=== PATIENT | female | born 1955 | race Caucasian/White ===

== ENCOUNTER → 2023-10-15 13:03 | Outpatient (REF) | payer MEDICARE, OTHER, SELFPAY ==
[2023-10-15 14:47] LABS: % Basophils 0.6 % (0-2); % Eosinophils 2.3 % (0-6); % Immature Granulocytes 0.2 % (0-0.5); % Lymphocytes 28.7 % (20.5-51.1); % Monocytes 11.9 % (1.7-9.3); % Neutrophils 56.3 % (42.2-75.2); Absolute Basophils 0.1 10^3/uL (0-0.2); Absolute Eosinophils 0.2 10^3/uL (0-0.7); Absolute Lymphocytes 2.5 10^3/uL (1.2-3.4); Absolute Neutrophils 4.8 10^3/uL (1.4-6.5); Hematocrit 41.5 % (37.0-47.0); Hemoglobin 14.3 g/dL (12.0-16.0); Mean Corp Hgb Conc. 34.5 g/dL (33.0-37.0); Mean Corpuscular Hgb 33.4 pg (27.0-31.0); Mean Platelet Volume 10.5 fL (7.4-10.4); Nucleated Red Blood Cells % 0 %; Platelet Count 208 10^3/uL (130-400); Red Blood Cell Count 4.28 10^6/uL (4.20-5.40); White Blood Cell Count 8.6 10^3/uL (4.8-10.8)
[2023-10-15 14:57] LABS: ALT (SGPT) 21 U/L (0-35); AST (SGOT) 31 U/L (14-36); Albumin 4.7 g/dl (3.5-5.0); Alkaline Phosphatase 79 U/L (38-126); Blood Urea Nitrogen 18 mg/dl (7-17); Carbon Dioxide 31 mmol/L (22-30); Chloride 97 mmol/L (98-107); Glucose 56 mg/dl (70-99); Sodium 136 mmol/L (135-145); Total Bilirubin 0.8 mg/dl (0.2-1.3); Total Protein 7.9 g/dl (6.3-8.2); eGFR > 60.00
[2023-10-15 15:12] LABS: Erythrocyte Sed Rate 14 mm/hour (0-20)
== END ==
LOC: HWLAB 13:03
PROVIDERS: ATTENDING PHYSICIAN Internal Medicine Rheumatology; FAMILY PHYSICIAN Internal Medicine
DX: M54.2 Cervicalgia (principal); L40.50 Arthropathic psoriasis, unspecified; L40.9 Psoriasis, unspecified; M81.0 Age-related osteoporosis without current pathological fracture; Z11.1 Encounter for screening for respiratory tuberculosis; Z51.81 Encounter for therapeutic drug level monitoring
CPT/HCPCS: 36415; 72040; 72072; 72110; 80053; 85025; 85652; 86140

== ENCOUNTER → 2023-10-25 09:45 | Outpatient (REF) | payer MEDICARE, OTHER, SELFPAY ==
[2023-10-27 17:48] LABS: Quantiferon Mitogen minus NIL 8.58 IU/mL; Quantiferon NIL 0.05 IU/mL; Quantiferon TB Gold Plus Negative (Negative)
== END ==
LOC: HWRAD 09:45
PROVIDERS: ATTENDING PHYSICIAN Internal Medicine Rheumatology; FAMILY PHYSICIAN Internal Medicine
DX: M81.0 Age-related osteoporosis without current pathological fracture (principal); L40.50 Arthropathic psoriasis, unspecified; L40.9 Psoriasis, unspecified; Z11.1 Encounter for screening for respiratory tuberculosis; Z51.81 Encounter for therapeutic drug level monitoring
CPT/HCPCS: 36415; 77080; 86480

== ENCOUNTER 2024-03-08 16:33 | Emergency (ER) | payer MEDICARE, OTHER, SELFPAY ==
[2024-03-08 16:39] VITALS: BP 120/77
--- NOTE | 2024-03-08 19:15 | ED.GENMED ---
History of Present Illness
General
Chief Complaint: Head Injury
Source: patient
Exam Limitations: none
Time Seen by Provider: 03/08/24 18:12
History of Present Illness
History of Present Illness:
This is a 68 year old female that comes in with c/o hitting her head. States that she was in the bathroom and she took a shower. states that she had left the bathroom door open and did not realize that the wind had blown the door closed some.
States that she was bending over brushing her hair and when she came back up she hit the back of her head on the doorknob. States that she laid herself on the floor and that there was no LOC. States that she has slight headache and dizziness. States
that she chronically has abd pain. Denies any fever, chills, chest pain, SOB, nausea, vomiting, diarrhea, urinary burning.
Past History
Past History
ED Past Medical History: Arrthythmia (tachycardia), Asthma, Cancer (Right breast cancer 1999), GERD, Psychiatric (anxiety) and Other (Interstitial cystitis, irritable bowel syndrome, chronic constipation, osteoporosis, brain injury, Adrenal
insufficiency, tinnitus, Anemia, Psoriatic arthritis, )
ED Past Surgical History: Cardiac (Ablation, ), Gynecological (Hysterectomy, vaginal/pelvic repair, ), Orthopedic, Urological ( bladder repair, bladder InterStim insertion) and Other (Right breast lumpectomy, Right jaw surgery, )
Social History
Tobacco: Non-smoker
Alcohol: None
Drug: None
Personal:
Living: with family
Employment: Employed (Elementary schoolteacher)
Family History
Family History: Other (Noncontributory)
Review of Systems
Review of Systems
All Other Systems: ROS reviewed and negative except as documented in HPI and ROS
Constitutional: Reports no symptoms; Denies fever or chills
EENT: Reports no symptoms
Respiratory: Reports no symptoms; Denies cough or trouble breathing
Cardiac: Reports no symptoms; Denies chest pain
ABD/GI: Reports abdominal pain (Chronic); Denies nausea, vomiting or diarrhea
: Reports no symptoms; Denies dysuria, frequency or urgency
Musculoskeletal: Reports neck pain
Skin: Reports other (Laceration head)
Neurological: Reports dizzy and headache (Slight)
Psychiatric: Reports no symptoms
Phy Exam
General Physical Exam
General Presentation: well appearing and no apparent distress
General age: appears stated age
General Skin: warm and dry
General Habitus: normal
General Mental: alert
General Hydration: appears well hydrated
ENT Exam
ENT Exam: TM's normal, pharynx normal and neck supple
Eye Exam
Eye Exam: EOMI
Cardiovascular Exam
Cardiovascular Exam: regular rate/rhythm, no edema and normal peripheral pulses
Pulmonary Exam
Pulmonary Exam: lungs clear, no respiratory distress, no rales, chest non tender, no crackles, no rhonchi, no wheezing and no cough
Musculoskeletal Exam
Musculoskeletal Exam: neck pain (with palpation)
Skin Exam
Skin Exam: normal color, warm/dry, no rash, no petechia and laceration (Posterior scalp)
Psychiatric Exam
Psychiatric Exam: normal mood/affect
Course
Orders/Labs/Results
Orders:
Orders
03/08/24 19:00
CT Cervical Spine W/o Iv Contr Urgent
Comment:
Reason For Exam: Neck pain
CT Head W/o Iv Contrast Urgent
Comment:
Reason For Exam: hit head on door knob
Vital Signs
Initial and Last Documented VS:
Initial Vital Signs
Temp Pulse Resp BP Pulse Ox
99.1 F 104 18 120/77 93
03/08/24 16:39 03/08/24 16:39 03/08/24 16:39 03/08/24 16:39 03/08/24 16:39
Last Documented Vital Signs
Temp Pulse Resp BP Pulse Ox
99.1 F 104 18 120/77 93
03/08/24 16:39 03/08/24 16:39 03/08/24 16:39 03/08/24 16:39 03/08/24 16:39
Procedures
Laceration Closure
Posterior Scalp:
Status of Wound: clean
Size of Wound in cm: 2.5
Description of Wound Edges: sharp
Preparation: cleaned with saline (and peroxide)
Wound exploration: explored to base- no FB
Type of Closure: other (Three konrad)
MDM/Problems Addressed
Differential Diagnosis Includes:
laceration, Head injury
MDM/Problems Addressed:
This is a 68 year old female that comes in with c/o hitting her head on the doorknob when she was coming up from brushing her hair.
Will get CT head and neck as patient c/o tenderness with cervical palpation.
Back into see patient. Explained that the CT of her head is normal. Her CT of the Cervical spine is negative for any fracture but there is increased degenerative changes. Patient will give given a Tetanus and discharge home. Patient to follow up
with the family doctor in 10 days for staple removal. Return with any concerns.
Chronic conditions affecting care:
NA
Acute Exacerbation and/or Progression of Chronic Illness:
NA
*Radiology
Radiology exam reviewed: radiology read reviewed (CT head-NO acute intracranial abnormality. CT cervical spine-Degenerative changes with progression in comparison to relative remove prior study. No findings to suggest recent cervical spine
fracture. )
*Pulse Oximetry
Patient hypoxic: no
*EKG
Interpreted by ED Provider?: NA
Rate: EKG- N/A
*Spent Grain Dryer Interpretation
Rate: Spent Grain Dryer- N/A
*Critical Care Note
Total Time (30-74mins, 75-104mins- exclusive of procedures): Not Applicable
ED Attending Note
-
Portions of this chart may have been created with voice recognition software.� Occasional wrong word or��sound alike� substitutions may have occurred due to the inherent limitations of voice recognition software.
Discharge Plan
Departure
Patient Disposition: Home (Routine Discharge)
Date of Disposition: 03/08/24
Time of Disposition: 20:27
Patient with high blood pressure during this ER visit?: No
Condition: Good
Covid-19: Not Applicable
Discharge Problem:
Laceration of head
Instructions: Laceration Repair With [place] (DC)
Prescriptions:
No Action
rabeprazole [AcipHex] 20 MG tablet,delayed release (DR/EC)
20 mg PO DAILY
montelukast 10 MG tablet
10 mg PO HS
fluticasone propionate 1 SPRAY spray,suspension
2 spray intranasal DAILY
cyclosporine [Restasis] 10 DROPS dropperette
1 drp BOTH EYES HS
hydrocortisone butyr-emollient 15 GM cream
1 applic topical DAILY
emollient combination no.25 [Eletone] 100 GM cream
1 applic TP BIDPRN PRN (Reason: legs/arm/back)
cholecalciferol (vitamin D3) 2,000 UNITS tablet
4,000 unit PO DAILY
mometasone-formoterol [Dulera] 1 PUFF HFA aerosol inhaler
1 puff IH R DAILY
crisaborole [Eucrisa] 60 GM ointment
1 applic topical DAILY
carisoprodol 350 MG tablet
350 mg PO TIDPRN PRN (Reason: migraines,severe arthisis pain)
dicyclomine 10 MG capsule
10 mg PO QIDPRN PRN (Reason: stomach cramps)
polyvinyl alcohol-povidon(PF) [Refresh Classic (PF)] 10 DROPS dropperette
1 drops BOTH EYES HS
levalbuterol tartrate 1 PUFF HFA aerosol inhaler
1 puff inhalation R Q6HPRN PRN (Reason: sob)
ubuuzqngwf-ajifxzxgog-lgh-cod 1 EACH capsule
1 tab PO .NINE TIMES A DAY
Patient Comments:
07/18/20-asked patient this is every day or as needed, patient informed me its everyday and that since she been on i for 20+years she take 9 tablet in a day
Genteal Ointment
1 applic BOTH EYES HS
desoximetasone 1 APPLIC cream
1 applic TP BID
cetirizine 10 MG tablet
10 mg PO DAILY
ondansetron HCl 4 MG tablet
8 mg PO TIDPRN PRN (Reason: nausea/vomiting)
valacyclovir 500 MG tablet
1,000 mg PO DAILY
phenazopyridine 100 MG tablet
100 mg PO MEALS
Patient Comments:
07/18/20-patient not sure if she took morning medication she said she was too sick and had a mirgraine
simethicone [Gas-X Extra Strength] 125 MG tablet,chewable
125 mg PO QIDPRN PRN (Reason: gas pains)
levalbuterol HCl 1.25 MG/3 ML solution for nebulization
1 vial inhalation R Q8HPRN PRN (Reason: sob)
estradiol 1 APPLIC cream
1 applic VAG .TWICE A WEEK
sumatriptan [Imitrex] 20 MG/SPRAY spray,non-aerosol
1 spray NS DAILYPRN PRN (Reason: mirgraines)
Lactobac 2-Bifido 1-S. therm [High Potency Probiotic] 1 CAP capsule
1 cap PO DAILY
levofloxacin 500 MG tablet
500 mg PO DAILY Qty: 4 0RF
levofloxacin 500 MG tablet
500 mg PO DAILY Qty: 7 0RF
prednisone 10 MG tablet
10 mg PO .TAPER Qty: 30 0RF
Rx Instructions:
Take 40mg daily x3days, 30mg daily x3days,
20mg daily x3days, 10mg daily x3days.
Referrals:
Elvia Thompson MD [Family Provider] - Follow up in 10 days
Activity Restrictions/Additional Instructions:
As discussed, your CT is negative for any acute process and your Cervical spine has increased degenerative changes. You have three konrad in the scalp laceration. Please follow up with the family doctor in 10 days for staple removal. Tylenol for
any headache pain. IF YOU HAVE HEADACHE NOT RELIEVED BY TYLENOL, VOMITING MORE THEN TWICE OR YOU HAVE ANY OTHER CONCERNS PLEASE RETURN TO THE EMERGENCY ROOM.
Interventions
Interventions:
*Risk Screen - Suicide Last Done: 03/08/24 19:03
*General Assessment Last Done: 03/08/24 19:00
*Neglect/Abuse Screening Last Done: 03/08/24 19:00
*ED COVID-19 Vaccine History Last Done: 03/08/24 19:00
ED- Neurological Assessment Last Done: 03/08/24 18:46
ED-Skin Assessment Last Done: 03/08/24 18:46
Discharge Date and Time
Print Language: ITALIAN
[2024-03-08] MEDS: ADACEL 0.5 ML IM (20:33)
== END 2024-03-08 20:43 | disposition home or self-care (01) ==
LOC: EMR 16:33
PROVIDERS: EMERGENCY PHYSICIAN Student in an Organized Health Care Education/Training Program; FAMILY PHYSICIAN Internal Medicine
DX: S01.01XA Laceration without foreign body of scalp, initial encounter (principal); W22.09XA Striking against other stationary object, initial encounter; Z23 Encounter for immunization
CPT/HCPCS: 99284; 12001; 90471; 70450; 72125; 90715

== ENCOUNTER 2024-03-21 18:21 | Emergency (ER) | payer MEDICARE, OTHER, SELFPAY ==
[2024-03-21 18:26] VITALS: BP 134/79
[2024-03-21 18:39] LABS: % Basophils 0.9 % (0-2); % Eosinophils 7.5 % (0-6); % Immature Granulocytes 0.2 % (0-0.5); % Lymphocytes 30.2 % (20.5-51.1); % Neutrophils 50.2 % (42.2-75.2); Absolute Basophils 0.1 10^3/uL (0-0.2); Absolute Eosinophils 0.5 10^3/uL (0-0.7); Absolute Monocytes 0.7 10^3/uL (0.1-0.6); Absolute Neutrophils 3.3 10^3/uL (1.4-6.5); Hematocrit 35.3 % (37.0-47.0); Hemoglobin 11.8 g/dL (12.0-16.0); Mean Corp Hgb Conc. 33.4 g/dL (33.0-37.0); Mean Corpuscular Hgb 32.3 pg (27.0-31.0); Mean Corpuscular Volume 96.7 fL (81.0-99.0); Mean Platelet Volume 9.6 fL (7.4-10.4); Nucleated Red Blood Cells % 0 %; Platelet Count 156 10^3/uL (130-400); Red Blood Cell Count 3.65 10^6/uL (4.20-5.40); Red Cell Dist. Width 12.3 % (11.5-14.5); White Blood Cell Count 6.7 10^3/uL (4.8-10.8)
[2024-03-21 19:04] LABS: ALT (SGPT) 20 U/L (0-35); AST (SGOT) 47 U/L (14-36); Albumin 4.2 g/dl (3.5-5.0); Alkaline Phosphatase 68 U/L (38-126); Blood Urea Nitrogen 10 mg/dl (7-17); Calcium 9.4 mg/dl (8.4-10.2); Carbon Dioxide 29 mmol/L (22-30); Chloride 103 mmol/L (98-107); Glucose 100 mg/dl (70-99); Potassium 3.9 mmol/L (3.5-5.1); Sodium 137 mmol/L (135-145); Total Bilirubin 0.4 mg/dl (0.2-1.3); Total Protein 6.7 g/dl (6.3-8.2); eGFR > 60.00
[2024-03-21 19:13] LABS: NT-proBNP 107 pg/ml; Troponin I < 0.012 ng/ml
--- NOTE | 2024-03-21 20:46 | ED.GENMED ---
History of Present Illness
General
Chief Complaint: Swelling
Source: patient and family
Exam Limitations: none
Time Seen by Provider: 03/21/24 18:52
Nursing documentation reviewed up to this point in time: agreed with
History of Present Illness
History of Present Illness:
68-year-old female with past medical history of adrenal insufficiency, psoriatic arthritis, persistent tachycardia, asthma, presenting to the emergency department today with concerns of lower extremity swelling over the past 2 weeks. Does have a
history of varicosities and has been following up with a vein center. Has had some increasing pain and swelling as well as redness bilaterally. Denies any systemic symptoms.
Past History
Past History
ED Past Medical History: Arrthythmia (tachycardia), Asthma, Cancer (Right breast cancer 1999), GERD, Psychiatric (anxiety) and Other (Interstitial cystitis, irritable bowel syndrome, chronic constipation, osteoporosis, brain injury, Adrenal
insufficiency, tinnitus, Anemia, Psoriatic arthritis, )
ED Past Surgical History: Cardiac (Ablation, ), Gynecological (Hysterectomy, vaginal/pelvic repair, ), Orthopedic, Urological ( bladder repair, bladder InterStim insertion) and Other (Right breast lumpectomy, Right jaw surgery, )
Social History
Tobacco: Non-smoker
Alcohol: None
Drug: None
Personal:
Living: with family
Employment: Employed (Elementary schoolteacher)
Family History
Family History: Other (Noncontributory)
Review of Systems
Review of Systems
Allergies reviewed?: Yes
All Other Systems: ROS reviewed and negative except as documented in HPI and ROS
Phy Exam
Physical Exam
Physical Exam:
GENERAL: Alert , in no apparent distress
EYE: pupils equal and reactive
NECK: Supple, no significant adenopathy.
ENT: o/p clr, mmm.
CARDIAC: Regular rate and rhythm .
LUNGS: Clear breath sounds bilaterally, no acute respiratory distress, no wheezes/rales/rhonchi
ABDOMEN: Soft, without focal tenderness, no r/g, no cvat
NEUROLOGICAL: Alert and oriented, no focal neuro deficits
SKIN: Redness and swelling to the lower extremities bilaterally mainly to the distal washburn anteriorly as well as the top of the foot bilaterally sparing the ankle good range of motion and strength the knee and the ankle. Mild tenderness palpation
throughout the area. Warm and dry, skin intact.
MUSCULOSKELETAL: , well perfused. Good distal pulses
PSYCH: Normal and appropriate interaction.
Scores
Heart Failure Risk
Heart Failure Risk Score: Not Applicable
Course
Orders/Labs/Results
Orders:
Orders
03/21/24 18:33
Complete Blood Count/With Diff Urgent
Comprehensive Metabolic Panel Urgent
Pro-BNP [NT-proBNP] Urgent
Troponin I Urgent
03/21/24 19:47
Venous Doppler Lwr Ext Bilat [US Periph Venous LOWER Ext Ciaran] Urgent
Comment:
Reason For Exam: leg swelling
03/21/24 22:24
LevoFLOXacin [Levaquin] 250 mg PO NOW STA
Abnormal Lab Results
03/21/24
18:33
RBC 3.65 L 10^6/uL
(4.20-5.40)
Hgb 11.8 L g/dL
(12.0-16.0)
Hct 35.3 L %
(37.0-47.0)
MCH 32.3 H pg
(27.0-31.0)
Absolute Monos (auto) 0.7 H 10^3/uL
(0.1-0.6)
Monocytes % 11.0 H %
(1.7-9.3)
Eosinophils % 7.5 H %
(0-6)
Creatinine 0.5 L mg/dL
(0.6-1.0)
Glucose 100 H mg/dl
(70-99)
AST 47 H U/L
(14-36)
03/21/24 18:33
03/21/24 18:33
Vital Signs
Initial and Last Documented VS:
Initial Vital Signs
Temp Pulse Resp BP Pulse Ox
98.2 F 107 19 134/79 93
03/21/24 18:26 03/21/24 18:26 03/21/24 18:26 03/21/24 18:26 03/21/24 18:26
Last Documented Vital Signs
Temp Pulse Resp BP Pulse Ox
98.2 F 107 19 134/79 97
03/21/24 18:26 03/21/24 18:26 03/21/24 18:26 03/21/24 18:26 03/21/24 20:10
MDM/Problems Addressed
MDM/Problems Addressed:
68-year-old female presenting to the emergency department today with concerns of lower extremity swelling worsening over the past 2 weeks. Now somewhat more painful red warm and somewhat difficulty ambulating. Here there is some redness warmth
tenderness to the shins bilaterally and symmetrically as well as to the tops of the feet bilaterally sparing the ankle good range of motion strength of the ankle and knee. Ultrasound was performed that did not show any signs of blood clot the area
is very symmetrical bilateral making cellulitis unlikely. Seems to be most consistent with potential peripheral vascular disease. Unlikely to be associate with heart failure kidney disease with normal kidney function test and a BNP of 107. Lungs
are clear. Ultrasound without signs of DVT. No white count seems less like to be cellulitis but patient like to err on the side of caution was treated with levofloxacin considering this is the only antibiotic that she is not allergic to.
Otherwise she will follow-up closely as an outpatient return precautions were given. Symptoms most likely consistent with venous stasis.
*Critical Care Note
Total Time (30-74mins, 75-104mins- exclusive of procedures): Not Applicable
ED Attending Note
-
Portions of this chart may have been created with voice recognition software.� Occasional wrong word or��sound alike� substitutions may have occurred due to the inherent limitations of voice recognition software.
Discharge Plan
Departure
Patient Disposition: Home (Routine Discharge)
Date of Disposition: 03/21/24
Time of Disposition: 22:26
Patient with high blood pressure during this ER visit?: No
Condition: Good
Covid-19: Not Applicable
Discharge Problem:
Leg swelling
Instructions: Dependent Edema (DC)
Prescriptions:
New
levofloxacin 250 mg tablet
250 mg PO DAILY 5 Days Qty: 5 0RF
No Action
rabeprazole [AcipHex] 20 MG tablet,delayed release (DR/EC)
20 mg PO DAILY
montelukast 10 MG tablet
10 mg PO HS
fluticasone propionate 1 SPRAY spray,suspension
2 spray intranasal DAILY
cyclosporine [Restasis] 10 DROPS dropperette
1 drp BOTH EYES HS
hydrocortisone butyr-emollient 15 GM cream
1 applic topical DAILY
emollient combination no.25 [Eletone] 100 GM cream
1 applic TP BIDPRN PRN (Reason: legs/arm/back)
cholecalciferol (vitamin D3) 2,000 UNITS tablet
4,000 unit PO DAILY
mometasone-formoterol [Dulera] 1 PUFF HFA aerosol inhaler
1 puff IH R DAILY
crisaborole [Eucrisa] 60 GM ointment
1 applic topical DAILY
carisoprodol 350 MG tablet
350 mg PO TIDPRN PRN (Reason: migraines,severe arthisis pain)
dicyclomine 10 MG capsule
10 mg PO QIDPRN PRN (Reason: stomach cramps)
polyvinyl alcohol-povidon(PF) [Refresh Classic (PF)] 10 DROPS dropperette
1 drops BOTH EYES HS
levalbuterol tartrate 1 PUFF HFA aerosol inhaler
1 puff inhalation R Q6HPRN PRN (Reason: sob)
qzpcmycxag-ugqvuiiwrn-wly-cod 1 EACH capsule
1 tab PO .NINE TIMES A DAY
Patient Comments:
07/18/20-asked patient this is every day or as needed, patient informed me its everyday and that since she been on i for 20+years she take 9 tablet in a day
Genteal Ointment
1 applic BOTH EYES HS
desoximetasone 1 APPLIC cream
1 applic TP BID
cetirizine 10 MG tablet
10 mg PO DAILY
ondansetron HCl 4 MG tablet
8 mg PO TIDPRN PRN (Reason: nausea/vomiting)
valacyclovir 500 MG tablet
1,000 mg PO DAILY
phenazopyridine 100 MG tablet
100 mg PO MEALS
Patient Comments:
07/18/20-patient not sure if she took morning medication she said she was too sick and had a mirgraine
simethicone [Gas-X Extra Strength] 125 MG tablet,chewable
125 mg PO QIDPRN PRN (Reason: gas pains)
levalbuterol HCl 1.25 MG/3 ML solution for nebulization
1 vial inhalation R Q8HPRN PRN (Reason: sob)
estradiol 1 APPLIC cream
1 applic VAG .TWICE A WEEK
sumatriptan [Imitrex] 20 MG/SPRAY spray,non-aerosol
1 spray NS DAILYPRN PRN (Reason: mirgraines)
Lactobac 2-Bifido 1-S. therm [High Potency Probiotic] 1 CAP capsule
1 cap PO DAILY
levofloxacin 500 MG tablet
500 mg PO DAILY Qty: 4 0RF
levofloxacin 500 MG tablet
500 mg PO DAILY Qty: 7 0RF
prednisone 10 MG tablet
10 mg PO .TAPER Qty: 30 0RF
Rx Instructions:
Take 40mg daily x3days, 30mg daily x3days,
20mg daily x3days, 10mg daily x3days.
Referrals:
UNKNOWN - PT DOES,NOT KNOW [Unknown Provider] -
John Ashby III, MD [Active] - Follow up in 1 week
Matt Landaverde MD [Active] - Follow up in 1 week
Activity Restrictions/Additional Instructions:
You came to the emergency department today with concerns of leg swelling. This is likely venous stasis inflammation. You were given antibiotics just in case this was cellulitis. Please follow closely with the primary care doctor and vascular.
Return to the emergency department for any worsening, new or concerning symptoms.
Interventions
Interventions:
*General Assessment Last Done: 03/21/24 20:10
ED- Fall Risk Assessment Last Done: 03/21/24 20:10
*ED COVID-19 Vaccine History Last Done: 03/21/24 20:10
ED- Cardiac Assessment Last Done: 03/21/24 20:10
ED- Pulmonary Assessment Last Done: 03/21/24 20:10
ED-Skin Assessment Last Done: 03/21/24 20:10
Discharge Date and Time
Print Language: ERITREAN
[2024-03-21] MEDS: LEVAQUIN 250 MG PO (22:41)
[2024-03-21 22:44] VITALS: BP 123/78
== END 2024-03-21 22:47 | disposition home or self-care (01) ==
LOC: EMR 18:21
PROVIDERS: Emergency Medicine; EMERGENCY PHYSICIAN Emergency Medicine; FAMILY PHYSICIAN Internal Medicine
DX: M79.89 Other specified soft tissue disorders (principal); M79.605 Pain in left leg; M79.604 Pain in right leg; R26.2 Difficulty in walking, not elsewhere classified; E27.40 Unspecified adrenocortical insufficiency; L40.50 Arthropathic psoriasis, unspecified; J45.909 Unspecified asthma, uncomplicated; K21.9 Gastro-esophageal reflux disease without esophagitis; M81.0 Age-related osteoporosis without current pathological fracture; D64.9 Anemia, unspecified; K58.9 Irritable bowel syndrome, unspecified; K59.09 Other constipation; F41.9 Anxiety disorder, unspecified; Z85.3 Personal history of malignant neoplasm of breast; Z88.6 Allergy status to analgesic agent; Z88.1 Allergy status to other antibiotic agents; Z88.3 Allergy status to other anti-infective agents; Z88.5 Allergy status to narcotic agent; Z88.0 Allergy status to penicillin; Z88.2 Allergy status to sulfonamides; Z88.8 Allergy status to other drugs, medicaments and biological substances
CPT/HCPCS: 99284; 80053; 83880; 84484; 85025; 93970

== ENCOUNTER → 2024-04-29 11:00 | Outpatient (REF) | payer MEDICARE, OTHER, SELFPAY ==
[2024-04-29 16:17] LABS: ALT (SGPT) 20 U/L (0-35); AST (SGOT) 31 U/L (14-36); Albumin 4.9 g/dl (3.5-5.0); Alkaline Phosphatase 68 U/L (38-126); Blood Urea Nitrogen 18 mg/dl (7-17); Calcium 10.2 mg/dl (8.4-10.2); Carbon Dioxide 32 mmol/L (22-30); Chloride 101 mmol/L (98-107); Glucose 86 mg/dl (70-99); Potassium 3.6 mmol/L (3.5-5.1); Sodium 138 mmol/L (135-145); Total Bilirubin 0.6 mg/dl (0.2-1.3); Total Protein 7.8 g/dl (6.3-8.2); eGFR > 60.00
[2024-04-29 16:21] LABS: C-Reactive Protein < 5.00 mg/L (0.0-10.00)
[2024-04-29 16:24] LABS: % Eosinophils 2.8 % (0-6); % Immature Granulocytes 0.1 % (0-0.5); % Lymphocytes 37.2 % (20.5-51.1); % Monocytes 12.8 % (1.7-9.3); % Neutrophils 46.1 % (42.2-75.2); Absolute Basophils 0.1 10^3/uL (0-0.2); Absolute Eosinophils 0.2 10^3/uL (0-0.7); Absolute Lymphocytes 2.7 10^3/uL (1.2-3.4); Absolute Monocytes 0.9 10^3/uL (0.1-0.6); Absolute Neutrophils 3.3 10^3/uL (1.4-6.5); Hematocrit 43.8 % (37.0-47.0); Hemoglobin 14.4 g/dL (12.0-16.0); Mean Corp Hgb Conc. 32.9 g/dL (33.0-37.0); Mean Corpuscular Hgb 32.3 pg (27.0-31.0); Mean Corpuscular Volume 98.2 fL (81.0-99.0); Mean Platelet Volume 11.1 fL (7.4-10.4); Nucleated Red Blood Cells % 0 %; Platelet Count 220 10^3/uL (130-400); Red Blood Cell Count 4.46 10^6/uL (4.20-5.40); White Blood Cell Count 7.3 10^3/uL (4.8-10.8)
[2024-04-29 16:49] LABS: Erythrocyte Sed Rate 12 mm/hour (0-20)
== END ==
LOC: HWLAB 11:00
PROVIDERS: ATTENDING PHYSICIAN Physician Assistant; FAMILY PHYSICIAN Internal Medicine
DX: L40.50 Arthropathic psoriasis, unspecified (principal); M54.2 Cervicalgia; M81.0 Age-related osteoporosis without current pathological fracture; Z51.81 Encounter for therapeutic drug level monitoring
CPT/HCPCS: 36415; 80053; 85025; 85652; 86140

== ENCOUNTER → 2024-10-28 14:08 | Outpatient (REF) | payer MEDICARE, OTHER, SELFPAY ==
[2024-10-28 14:45] LABS: % Basophils 0.7 % (0-2); % Eosinophils 2.8 % (0-6); % Immature Granulocytes 0.3 % (0-0.5); % Lymphocytes 31.2 % (20.5-51.1); % Monocytes 8.3 % (1.7-9.3); % Neutrophils 56.7 % (42.2-75.2); Absolute Eosinophils 0.2 10^3/uL (0-0.7); Absolute Lymphocytes 1.9 10^3/uL (1.2-3.4); Absolute Monocytes 0.5 10^3/uL (0.1-0.6); Absolute Neutrophils 3.4 10^3/uL (1.4-6.5); Hematocrit 35.9 % (37.0-47.0); Hemoglobin 11.1 g/dL (12.0-16.0); Mean Corp Hgb Conc. 30.9 g/dL (33.0-37.0); Mean Corpuscular Hgb 30.7 pg (27.0-31.0); Mean Corpuscular Volume 99.2 fL (81.0-99.0); Mean Platelet Volume 10.2 fL (7.4-10.4); Nucleated Red Blood Cells % 0 %; Platelet Count 174 10^3/uL (130-400); Red Blood Cell Count 3.62 10^6/uL (4.20-5.40); Red Cell Dist. Width 12.9 % (11.5-14.5); White Blood Cell Count 6.1 10^3/uL (4.8-10.8)
[2024-10-28 15:02] LABS: Erythrocyte Sed Rate 2 mm/hour (0-20)
[2024-10-28 15:18] LABS: ALT (SGPT) 23 U/L (0-35); AST (SGOT) 25 U/L (14-36); Albumin 4.4 g/dl (3.5-5.0); Alkaline Phosphatase 59 U/L (38-126); Blood Urea Nitrogen 12 mg/dl (7-17); Carbon Dioxide 31 mmol/L (22-30); Chloride 100 mmol/L (98-107); Glucose 156 mg/dl (70-99); Potassium 4.4 mmol/L (3.5-5.1); Sodium 138 mmol/L (135-145); Total Bilirubin 0.6 mg/dl (0.2-1.3); Total Protein 6.6 g/dl (6.3-8.2); eGFR > 60.00
[2024-10-28 16:29] LABS: C-Reactive Protein < 5.00 mg/L (0.0-10.00)
== END ==
LOC: REG 14:08
PROVIDERS: ATTENDING PHYSICIAN Internal Medicine Rheumatology; FAMILY PHYSICIAN Internal Medicine
DX: L40.50 Arthropathic psoriasis, unspecified (principal); M54.2 Cervicalgia; M81.0 Age-related osteoporosis without current pathological fracture; Z51.81 Encounter for therapeutic drug level monitoring
CPT/HCPCS: 36415; 80053; 85025; 85652; 86140

== ENCOUNTER 2024-11-04 11:57 | Outpatient (RCR) | payer MEDICARE, OTHER, SELFPAY | END 2024-11-04 23:59 | disposition home or self-care (01) | LOC: RPT 11:57 | PROVIDERS: ATTENDING PHYSICIAN Internal Medicine | DX: N30.10 Interstitial cystitis (chronic) without hematuria (principal); M62.89 Other specified disorders of muscle; Z73.6 Limitation of activities due to disability | CPT/HCPCS: 97110; 97140; 97163; 97530 ==

== ENCOUNTER 2024-12-04 13:33 | Outpatient (RCR) | payer MEDICARE, OTHER, SELFPAY | END 2024-12-04 23:59 | disposition home or self-care (01) | LOC: RPT 13:33 | PROVIDERS: ATTENDING PHYSICIAN Internal Medicine | DX: N30.10 Interstitial cystitis (chronic) without hematuria (principal); M62.89 Other specified disorders of muscle; Z73.6 Limitation of activities due to disability | CPT/HCPCS: 97110; 97140; 97530 ==

== ENCOUNTER 2025-01-01 13:08 | Outpatient (RCR) | payer MEDICARE, OTHER, SELFPAY | END 2025-01-01 23:59 | disposition home or self-care (01) | LOC: RPT 13:08 | PROVIDERS: ATTENDING PHYSICIAN Internal Medicine | DX: N30.10 Interstitial cystitis (chronic) without hematuria (principal); M62.89 Other specified disorders of muscle; Z73.6 Limitation of activities due to disability | CPT/HCPCS: 97110; 97140; 97530 ==

== ENCOUNTER 2025-02-05 13:48 | Outpatient (RCR) | payer MEDICARE, OTHER, SELFPAY | END 2025-02-05 23:59 | disposition home or self-care (01) | LOC: RPT 13:48 | PROVIDERS: ATTENDING PHYSICIAN Internal Medicine | DX: N30.10 Interstitial cystitis (chronic) without hematuria (principal); M62.89 Other specified disorders of muscle; Z73.6 Limitation of activities due to disability | CPT/HCPCS: 97110; 97140 ==

== ENCOUNTER → 2025-02-16 14:15 | Outpatient (REF) | payer MEDICARE, OTHER, SELFPAY ==
[2025-02-16 15:21] LABS: % Basophils 0.6 % (0-2); % Eosinophils 3.4 % (0-6); % Immature Granulocytes 0.3 % (0-0.5); % Monocytes 11.5 % (1.7-9.3); % Neutrophils 56.2 % (42.2-75.2); Absolute Eosinophils 0.2 10^3/uL (0-0.7); Absolute Lymphocytes 1.8 10^3/uL (1.2-3.4); Absolute Monocytes 0.7 10^3/uL (0.1-0.6); Absolute Neutrophils 3.5 10^3/uL (1.4-6.5); Hematocrit 35.6 % (37.0-47.0); Hemoglobin 11.6 g/dL (12.0-16.0); Mean Corp Hgb Conc. 32.6 g/dL (33.0-37.0); Mean Corpuscular Volume 98.3 fL (81.0-99.0); Mean Platelet Volume 10.5 fL (7.4-10.4); Nucleated Red Blood Cells % 0 %; Platelet Count 163 10^3/uL (130-400); Red Blood Cell Count 3.62 10^6/uL (4.20-5.40); White Blood Cell Count 6.3 10^3/uL (4.8-10.8)
[2025-02-16 15:37] LABS: ALT (SGPT) 20 U/L (0-35); AST (SGOT) 23 U/L (14-36); Albumin 4.5 g/dl (3.5-5.0); Alkaline Phosphatase 39 U/L (38-126); Blood Urea Nitrogen 12 mg/dl (7-17); Calcium 10.1 mg/dl (8.4-10.2); Carbon Dioxide 28 mmol/L (22-30); Chloride 107 mmol/L (98-107); Glucose 153 mg/dl (70-99); Potassium 3.8 mmol/L (3.5-5.1); Sodium 141 mmol/L (135-145); Total Bilirubin 0.4 mg/dl (0.2-1.3); eGFR > 60.00
[2025-02-16 15:39] LABS: C-Reactive Protein < 5.00 mg/L (0.0-10.00)
[2025-02-16 15:46] LABS: Erythrocyte Sed Rate 5 mm/hour (0-20)
== END ==
LOC: REG 14:15
PROVIDERS: ATTENDING PHYSICIAN Internal Medicine Rheumatology; FAMILY PHYSICIAN Internal Medicine
DX: L27.0 Generalized skin eruption due to drugs and medicaments taken internally (principal); L40.50 Arthropathic psoriasis, unspecified; M54.2 Cervicalgia; M81.0 Age-related osteoporosis without current pathological fracture; R53.81 Other malaise; Z51.81 Encounter for therapeutic drug level monitoring
CPT/HCPCS: 36415; 80053; 85025; 85652; 86140

== ENCOUNTER 2025-03-05 13:15 | Outpatient (RCR) | payer MEDICARE, OTHER, SELFPAY | END 2025-03-05 23:59 | disposition home or self-care (01) | LOC: RPT 13:15 | PROVIDERS: ATTENDING PHYSICIAN Internal Medicine | DX: N30.10 Interstitial cystitis (chronic) without hematuria (principal); M62.89 Other specified disorders of muscle; Z73.6 Limitation of activities due to disability | CPT/HCPCS: 97110; 97140 ==

== ENCOUNTER → 2025-03-05 15:05 | Outpatient (REF) | payer MEDICARE, OTHER, SELFPAY | LOC: RAD 15:05 | PROVIDERS: ATTENDING PHYSICIAN Internal Medicine | DX: R05.2 Subacute cough (principal) | CPT/HCPCS: 71046 ==

== ENCOUNTER → 2025-03-14 10:06 | Outpatient (REF) | payer MEDICARE, OTHER, SELFPAY | LOC: RAD 10:06 | PROVIDERS: ATTENDING PHYSICIAN Internal Medicine Critical Care Medicine; FAMILY PHYSICIAN Internal Medicine | DX: J45.20 Mild intermittent asthma, uncomplicated (principal); R91.8 Other nonspecific abnormal finding of lung field | CPT/HCPCS: 71250; 87205 ==

== ENCOUNTER 2025-05-01 12:47 | Outpatient (RCR) | payer MEDICARE, OTHER, SELFPAY | END 2025-05-01 23:59 | disposition home or self-care (01) | LOC: RPT 12:47 | PROVIDERS: ATTENDING PHYSICIAN Internal Medicine | DX: N30.10 Interstitial cystitis (chronic) without hematuria (principal); M62.89 Other specified disorders of muscle; Z73.6 Limitation of activities due to disability | CPT/HCPCS: 97140 ==

== ENCOUNTER → 2025-05-25 14:30 | Outpatient (REF) | payer MEDICARE, OTHER, SELFPAY | LOC: HWRAD 14:30 | PROVIDERS: ATTENDING PHYSICIAN Nurse Practitioner Adult Health; FAMILY PHYSICIAN Internal Medicine | DX: R91.8 Other nonspecific abnormal finding of lung field (principal) | CPT/HCPCS: 71250 ==

== ENCOUNTER → 2025-08-07 16:41 | Outpatient (REF) | payer MEDICARE, OTHER, SELFPAY ==
[2025-08-07 17:26] LABS: Hematocrit 36.8 % (37.0-47.0); Hemoglobin 11.7 g/dL (12.0-16.0); Mean Corp Hgb Conc. 31.8 g/dL (33.0-37.0); Mean Corpuscular Volume 98.9 fL (81.0-99.0); Nucleated Red Blood Cells % 0 %; Platelet Count 173 10^3/uL (130-400); Red Cell Dist. Width 12.4 % (11.5-14.5)
[2025-08-07 17:34] LABS: Urine Character Clear (Clear)
[2025-08-07 17:46] LABS: ALT (SGPT) 19 U/L (0-35); AST (SGOT) 25 U/L (14-36); Albumin 4.6 g/dl (3.5-5.0); Alkaline Phosphatase 53 U/L (38-126); Blood Urea Nitrogen 11 mg/dl (7-17); Calcium 10.1 mg/dl (8.4-10.2); Carbon Dioxide 32 mmol/L (22-30); Chloride 102 mmol/L (98-107); Glucose 85 mg/dl (70-99); Potassium 4.0 mmol/L (3.5-5.1); Sodium 136 mmol/L (135-145); Total Protein 7.6 g/dl (6.3-8.2); eGFR > 60.00
[2025-08-07 17:50] LABS: C-Reactive Protein < 5.00 mg/L (0.0-10.00)
== END ==
LOC: REG 16:41
PROVIDERS: ATTENDING PHYSICIAN Internal Medicine Rheumatology; FAMILY PHYSICIAN Internal Medicine
DX: L27.0 Generalized skin eruption due to drugs and medicaments taken internally (principal); L40.50 Arthropathic psoriasis, unspecified; M54.2 Cervicalgia; M81.0 Age-related osteoporosis without current pathological fracture; R53.81 Other malaise; Z51.81 Encounter for therapeutic drug level monitoring
CPT/HCPCS: 36415; 80053; 81003; 85025; 85652; 86140

== ENCOUNTER → 2025-08-10 09:45 | Outpatient (REF) | payer MEDICARE, OTHER, SELFPAY | LOC: RAD 09:45 | PROVIDERS: ATTENDING PHYSICIAN Internal Medicine Rheumatology; FAMILY PHYSICIAN Internal Medicine | DX: M81.0 Age-related osteoporosis without current pathological fracture (principal) | CPT/HCPCS: 77080 ==

== ENCOUNTER 2025-08-25 15:21 | Emergency (ER) | payer MEDICARE, OTHER, SELFPAY ==
[2025-08-25 16:01] VITALS: BP 118/70
[2025-08-25 21:23] VITALS: BP 155/104
--- NOTE | 2025-08-25 21:25 | ED.GENMED ---
History of Present Illness
General
Chief Complaint: Swelling
Source: patient
Exam Limitations: none
Time Seen by Provider: 08/25/25 21:23
Nursing documentation reviewed up to this point in time: agreed with
History of Present Illness
History of Present Illness:
69-year-old female with history of adrenal insufficiency, psoriatic arthritis, persistent tachycardia, asthma, varicosities and has been following up with the [facility], GERD, anxiety, interstitial cystitis with pelvic floor physical therapy up
until 07/21/2025, IBS, chronic constipation, osteoporosis, brain injury, anemia, presents today for for bilateral leg swelling and discomfort for past 2 weeks. Denies CP, SOB, abdominal pain. Denies fever, n/v/d/c.
Past History
Past History
ED Past Medical History: Arrthythmia (tachycardia), Asthma, Cancer (Right breast cancer 1999), GERD, Psychiatric (anxiety) and Other (Interstitial cystitis, irritable bowel syndrome, chronic constipation, osteoporosis, brain injury, Adrenal
insufficiency, tinnitus, Anemia, Psoriatic arthritis, )
ED Past Surgical History: Cardiac (Ablation, ), Gynecological (Hysterectomy, vaginal/pelvic repair, ), Orthopedic, Urological ( bladder repair, bladder InterStim insertion) and Other (Right breast lumpectomy, Right jaw surgery, )
Social History
Tobacco: Non-smoker
Alcohol: None
Drug: None
Personal:
Living: with family
Employment: Employed (Elementary schoolteacher)
Family History
Family History: Other (Noncontributory)
Review of Systems
Review of Systems
Allergies reviewed?: Yes
All Other Systems: ROS reviewed and negative except as documented in HPI and ROS
Constitutional: Denies fever or chills
Respiratory: Denies trouble breathing
Cardiac: Denies chest pain
ABD/GI: Denies abdominal pain, nausea, vomiting or diarrhea
: Denies dysuria
Musculoskeletal: Reports edema; Denies joint pain or joint swelling
Phy Exam
Physical Exam
Physical Exam:
GENERAL: No acute distress. A&Ox3.
CONSTITUTIONAL: Afebrile.
EYES: clear, conjunctivae normal
ENMT: moist mucus membranes, Pharynx nl
RESPIRATORY: Regular respirations, nonlabored, lungs clear.
CARDIOVASCULAR: Regular rate and rhythm, tachycardic (chronic) no murmurs, no rubs.
GI: Soft, nontender, normal BS
MUSCULOSKELETAL: Moves with ease. Well perfused. +2 pitting edema from just below both knees to and including dorsum both feet. Faintly pink, no significant redness, both are mildly warm, brisk capillary refill. DP pulses equal.
SKIN: Warm, dry, pale
PSYCH: Normal mood and affect. Well kept, interactive and appropriate
NEUROLOGIC: Awake, alert and oriented. No focal neurological deficits
Scores
Heart Failure Risk
Heart Failure Risk Score: Not Applicable
Course
Orders/Labs/Results
Orders:
Orders
08/25/25 16:21
CT Head W/o Iv Contrast Urgent
Comment:
Reason For Exam: fall
08/25/25 16:22
CT Cervical Spine W/o Iv Contr Urgent
Comment:
Reason For Exam: fall
Lumbar Spine, 2 or 3 View [CR Lumbar Spine 2 Or 3 Views] Urgent
Comment:
Reason For Exam: fall
08/25/25 21:40
US Periph Venous LOWER Ext Ciaran Urgent
Comment:
Reason For Exam: swelling
08/25/25 21:47
CMP [Comprehensive Metabolic Panel] Urgent
Complete Blood Count/With Diff Urgent
08/25/25 21:48
NT-proBNP Urgent
Abnormal Lab Results
08/25/25
21:47
RBC 3.46 L 10^6/uL
(4.20-5.40)
Hgb 11.1 L g/dL
(12.0-16.0)
Hct 34.6 L %
(37.0-47.0)
MCV 100.0 H fL
(81.0-99.0)
MCH 32.1 H pg
(27.0-31.0)
MCHC 32.1 L g/dL
(33.0-37.0)
Absolute Monos (auto) 0.7 H 10^3/uL
(0.1-0.6)
Monocytes % 12.3 H %
(1.7-9.3)
Eosinophils % 8.5 H %
(0-6)
Carbon Dioxide 33 H mmol/L
(22-30)
Creatinine 0.5 L mg/dL
(0.6-1.0)
08/25/25 21:47
08/25/25 21:47
Vital Signs
Initial and Last Documented VS:
Initial Vital Signs
Temp Pulse Resp BP Pulse Ox
98.2 F 101 20 118/70 96
08/25/25 16:01 08/25/25 16:01 08/25/25 16:01 08/25/25 16:01 08/25/25 16:01
Last Documented Vital Signs
Temp Pulse Resp BP Pulse Ox
98.2 F 111 16 155/104 100
08/25/25 16:01 08/25/25 21:29 08/25/25 21:23 08/25/25 21:23 08/25/25 21:31
MDM/Problems Addressed
Differential Diagnosis Includes:
dependent edema, PVD, DVT, cellulitis
MDM/Problems Addressed:
69-year-old female with history of adrenal insufficiency, psoriatic arthritis, persistent tachycardia, asthma, varicosities and [facility], GERD, anxiety, interstitial cystitis with pelvic floor physical therapy up
until 07/21/2025, IBS, chronic constipation, osteoporosis, brain injury, anemia, presents today for for bilateral leg swelling and discomfort for past 2 weeks. Denies CP, SOB, abdominal pain. Denies fever, n/v/d/c.
The following tests were ordered in Triage:
Lumbar spine x-ray radiology report reviewed there is no evidence of acute compression fracture within the lumbar spine mild DJD of L4-5 with mild lower lumbar facet arthropathy
Cervical spine radiology report reviewed degenerative changes no recent cervical spine fracture
Head CT radiology report read: No acute intracranial abnormality.
Pt is followed by [facility] [place] [facility] for her L eye issues, nothing to address here tonight
CBC with no clinically significant abnormality
CMP with no clinically significant abnormality
BNP normal
Patient is very concerned about cellulitis, she is hyper-focused on this, this is very unlikely that it is cellulitis due to the fact that the swelling is equal in both legs from just below the knee down to and including the dorsum of both feet,
there has been no fever, normal WBC.
11:00 PM:
Ultrasound shows no evidence of DVT
*Pulse Oximetry
SaO2: 100
Oxygen Mode of Delivery: Room air
Patient hypoxic: no
*Critical Care Note
Total Time (30-74mins, 75-104mins- exclusive of procedures): Not Applicable
ED Attending Note
-
Portions of this chart may have been created with voice recognition software.� Occasional wrong word or��sound alike� substitutions may have occurred due to the inherent limitations of voice recognition software.
Discharge Plan
Departure
Patient Disposition: Home (Routine Discharge)
Date of Disposition: 08/25/25
Time of Disposition: 23:10
Patient with high blood pressure during this ER visit?: No
Condition: Good
Discharge Problem:
Edema of both legs
Instructions: Swelling
Prescriptions:
No Action
rabeprazole [AcipHex] 20 MG tablet,delayed release (DR/EC)
20 mg PO DAILY
montelukast 10 MG tablet
10 mg PO HS
fluticasone propionate 1 SPRAY spray,suspension
2 spray intranasal DAILY
cyclosporine [Restasis] 10 DROPS dropperette
1 drp BOTH EYES HS
hydrocortisone butyr-emollient 15 GM cream
1 applic topical DAILY
emollient combination no.25 [Eletone] 100 GM cream
1 applic TP BIDPRN PRN (Reason: legs/arm/back)
cholecalciferol (vitamin D3) 2,000 UNITS tablet
4,000 unit PO DAILY
mometasone-formoterol [Dulera] 1 PUFF HFA aerosol inhaler
1 puff IH R DAILY
crisaborole [Eucrisa] 60 GM ointment
1 applic topical DAILY
carisoprodol 350 MG tablet
350 mg PO TIDPRN PRN (Reason: migraines,severe arthisis pain)
dicyclomine 10 MG capsule
10 mg PO QIDPRN PRN (Reason: stomach cramps)
polyvinyl alcohol-povidone(PF) [Refresh Classic (PF)] 10 DROPS dropperette
1 drops BOTH EYES HS
levalbuterol tartrate 1 PUFF HFA aerosol inhaler
1 puff inhalation R Q6HPRN PRN (Reason: sob)
xdkwihqxzw-wtekcbrkza-dpc-cod 1 EACH capsule
1 tab PO .NINE TIMES A DAY
Patient Comments:
07/18/20-asked patient this is every day or as needed, patient informed me its everyday and that since she been on i for 20+years she take 9 tablet in a day
Genteal Ointment
1 applic BOTH EYES HS
desoximetasone 1 APPLIC cream
1 applic TP BID
cetirizine 10 MG tablet
10 mg PO DAILY
ondansetron HCl 4 MG tablet
8 mg PO TIDPRN PRN (Reason: nausea/vomiting)
valacyclovir 500 MG tablet
1,000 mg PO DAILY
phenazopyridine 100 MG tablet
100 mg PO MEALS
Patient Comments:
07/18/20-patient not sure if she took morning medication she said she was too sick and had a mirgraine
simethicone [Gas-X Extra Strength] 125 MG tablet,chewable
125 mg PO QIDPRN PRN (Reason: gas pains)
levalbuterol HCl 1.25 MG/3 ML solution for nebulization
1 vial inhalation R Q8HPRN PRN (Reason: sob)
estradiol 1 APPLIC cream
1 applic VAG .TWICE A WEEK
sumatriptan [Imitrex] 20 MG/SPRAY spray,non-aerosol
1 spray NS DAILYPRN PRN (Reason: mirgraines)
Lactobac 2-Bifido 1-S. therm [High Potency Probiotic] 1 CAP capsule
1 cap PO DAILY
levofloxacin 500 MG tablet
500 mg PO DAILY Qty: 4 0RF
levofloxacin 500 MG tablet
500 mg PO DAILY Qty: 7 0RF
prednisone 10 MG tablet
10 mg PO .TAPER Qty: 30 0RF
Rx Instructions:
Take 40mg daily x3days, 30mg daily x3days,
20mg daily x3days, 10mg daily x3days.
levofloxacin 250 mg tablet
250 mg PO DAILY 5 Days Qty: 5 0RF
Referrals:
Garrett Adler MD [Family Provider, Internal Medicine] - As needed
Activity Restrictions/Additional Instructions:
As we discussed, nothing worrisome in your workup here tonight. Specifically no clots in your legs, no sign of infection.
Continue wearing your compression stockings as the best you can do at this point,
Try to move around as much as you possibly can as moving the muscles in your legs is what we will get the circulation going and the swelling may improve
Interventions
Interventions:
*General Assessment Last Done: 08/25/25 16:01
*Neglect/Abuse Screening Last Done: 08/25/25 16:01
*Risk Screen - Suicide (C-SSRS) Last Done: 08/25/25 16:01
ED- Cardiac Assessment Last Done: 08/25/25 21:24
ED- Pulmonary Assessment Last Done: 08/25/25 21:24
ED-Skin Assessment Last Done: 08/25/25 20:59
Discharge Date and Time
Print Language: BELARUSIAN
[2025-08-25 21:55] LABS: Hematocrit 34.6 % (37.0-47.0); Hemoglobin 11.1 g/dL (12.0-16.0); Mean Corp Hgb Conc. 32.1 g/dL (33.0-37.0); Mean Corpuscular Volume 100.0 fL (81.0-99.0); Nucleated Red Blood Cells % 0 %; Platelet Count 154 10^3/uL (130-400); Red Cell Dist. Width 12.6 % (11.5-14.5)
[2025-08-25 22:10] LABS: ALT (SGPT) 24 U/L (0-35); AST (SGOT) 30 U/L (14-36); Albumin 4.2 g/dl (3.5-5.0); Alkaline Phosphatase 55 U/L (38-126); Blood Urea Nitrogen 8 mg/dl (7-17); Calcium 9.7 mg/dl (8.4-10.2); Carbon Dioxide 33 mmol/L (22-30); Chloride 103 mmol/L (98-107); Glucose 90 mg/dl (70-99); Potassium 3.8 mmol/L (3.5-5.1); Sodium 138 mmol/L (135-145); Total Protein 6.7 g/dl (6.3-8.2); eGFR > 60.00
[2025-08-25 23:15] VITALS: BP 118/88
== END 2025-08-25 23:15 | disposition home or self-care (01) ==
LOC: EMR 15:21
PROVIDERS: Registered Nurse; EMERGENCY PHYSICIAN Student in an Organized Health Care Education/Training Program; FAMILY PHYSICIAN Internal Medicine
DX: R60.0 Localized edema (principal); H54.7 Unspecified visual loss; E27.40 Unspecified adrenocortical insufficiency; J45.909 Unspecified asthma, uncomplicated; L40.50 Arthropathic psoriasis, unspecified; Z85.3 Personal history of malignant neoplasm of breast; Z90.710 Acquired absence of both cervix and uterus; M51.369 Other intervertebral disc degeneration, lumbar region without mention of lumbar back pain or lower extremity pain
CPT/HCPCS: 99284; 70450; 72100; 72125; 80053; 83880; 85025; 93970